=== PATIENT | female | born 1990 | race Caucasian/White ===

== ENCOUNTER 2016-09-24 20:43 | Emergency (ER) | payer OTHER ==
[2016-09-24] MEDS ORDERED: Hydromorphone 1 mg/ml Ampule IV ONE (21:16)
[2016-09-24] MEDS ORDERED: Phenergan 25 MG INJ IV ONE (21:16)
[2016-09-24] MEDS ORDERED: Sodium Chloride 0.9% 1000 ML 1,000 ML IV STA (21:16)
[2016-09-24] MEDS ORDERED: Phenergan 25 MG INJ ONE (21:29)
[2016-09-24] MEDS ORDERED: Sodium Chloride 0.9% 1000 ML 1,000 ML ONE (21:29)
[2016-09-24] MEDS ORDERED: Hydromorphone 1 mg/ml Ampule ONE (21:29)
[2016-09-24 21:36] LABS: BASOPHIL % 0.1 % (0.0-0.4); Eosinophil % 0.6 % (0.00-5.0); Granulocytes % 67.7 % (36.0-66.0); Lymphocytes % 23.5 % (24.0-44.0); Mean Cell Volume 87.5 fl (78-100); Mean Corpuscular Hemoglobin 29.4 pg (26-32); Mean Platelet Volume 10.7 fl (6-9.5); Monocytes % 8.1 % (0.0-12.0); Platelet Count 245 K/mm3 (150-450); Red Blood Count 5.11 M/mm3 (4.1-5.4); Red Cell Distribution Width 13.2 % (11.5-14.0); White Blood Count 8.7 K/mm3 (4.0-10.5)
[2016-09-24 21:53] LABS: ALBUMIN 3.9 g/dL (3.4-5.0); ALKALINE PHOSPHATASE 106 U/L (46-116); ANION GAP 13.1 MEQ/L (5-15); BILIRUBIN,TOTAL 0.5 mg/dL (0.2-1.0); BLOOD UREA NITROGEN 12 mg/dL (9-20); CHLORIDE 107 mEq/L (98-107); Carbon Dioxide 24.8 mEq/L (21-32); Glucose 96 MG/DL (70-110); LIPASE 260 U/L (73-393); MAGNESIUM 1.9 mg/dL (1.8-2.4); Potassium 3.5 mEq/L (3.5-5.1); SGOT/AST 16 U/L (15-37); SGPT/ALT 23 U/L (12-78); SODIUM 141 mEq/L (136-145); Total Protein 7.8 gm/dL (6.4-8.2)
--- NOTE | 2016-09-24 21:55 | ERPHSYRPT ---
- History of Present Illness Time Seen by Provider: 09/24/16 20:55 Historian: patient, other (N.N.) Exam Limitations: no limitations Patient Subjective Stated Complaint: Pt sts burping with sulfur taste and diarrhea x 1, sts going on for 2 hours. Sts pain all over abd 6/10. Sts hx of ulcers since age 14. Sts decreased appetite x 1 week. Triage Nursing Assessment: Pt alert, oriented, answers all questions appropriately. Skin p/w/d, resps non-labored. Ambulatory to tx room steady gait noted. Physician History: FOR THE PAST WEEK PT HAS HAD DECREASED APPETITE; FOR THE PAST 2 HOURS ERUCTATION , EPIGASTRIC DISCOMFORT, NAUSEA, LOWER ABDOMINAL CRAMPS AND DIARRHEA X1. PT STATES SHE HAD A TURKEY SANDWICH WITH MIRACLE WHIP FROM HER GRANDMOTHER TODAY PRIOR TO ONSET OF ABDOMINAL CRAMPS. Allergies/Adverse Reactions: coconut Allergy (Verified 09/24/16 21:24) Immunizations Up to Date: Yes - Review of Systems Abdominal/Gastrointestinal: Abdominal Pain, Nausea, Diarrhea, Appetite Changes ( DECREASED) All Other Systems: Reviewed and Negative - Past Medical History Pertinent Past Medical History: Yes GI Medical History: Ulcer Psycho-Social History: Depression - Past Surgical History Past Surgical History: No - Social History Smoking Status: Never smoker Exposure to second hand smoke: No Drug Use: none Patient Lives Alone: No - Female History Hx Last Menstrual Period: IUD - Nursing Vital Signs Nursing Vital Signs: Initial Vital Signs Temperature 98.3 F Temperature Source Oral Pulse Rate 70 Respiratory Rate 16 Blood Pressure [Right Arm] 106/67 Pain Intensity 7 - Physical Exam General Appearance: alert Eye Exam: PERRL/EOMI Ears, Nose, Throat Exam: TMs normal, pharynx normal, moist mucous membranes Neck Exam: normal inspection Respiratory Exam: lungs clear Cardiovascular Exam: normal heart sounds Gastrointestinal/Abdomen Exam: soft, tenderness (MILD DIFFUSE ABDOMINAL TENDERNESS), other (B.S. VERY HYPERACTIVE AND NORMOTONIC), No guarding Back Exam: normal range of motion Extremity Exam: normal inspection, No pedal edema Neurologic Exam: alert, cooperative Skin Exam: warm, dry SpO2 Interpretation: normal SpO2: 97 Oxygen Delivery: Room Air - Course Nursing assessment & vital signs reviewed: Yes Ordered Tests: Active Orders 24 hr Category Date Time Status Clean Catch Urine Specimen STAT Care 09/25/16 00:02 Active IV Insertion STAT Care 09/24/16 21:16 Active AMYLASE Stat Lab 09/24/16 21:30 Completed CBC W DIFF Stat Lab 09/24/16 21:30 Completed CMP Stat Lab 09/24/16 21:30 Completed HCG QUALITATIVE,SERUM Stat Lab 09/24/16 21:30 Completed LIPASE Stat Lab 09/24/16 21:30 Completed MAGNESIUM Stat Lab 09/24/16 21:30 Completed UA W/ MICROSCOPIC Stat Lab 09/24/16 23:50 Completed Medication Summary Generic Name Dose Route Start Last Admin Trade Name Freq PRN Reason Stop Dose Admin Potassium Chloride/Sodium Chloride 1,000 mls @ 100 mls/hr 09/24/16 23:45 00:06 Sodium Chloride 0.45% W/ 20 Meq Kcl IV 10/24/16 23:44 100 mls/hr .Q10H SHANTA Administration Discontinued Medications Generic Name Dose Route Start Last Admin Trade Name Freq PRN Reason Stop Dose Admin Hydromorphone HCl 1 mg 09/24/16 21:16 09/24/16 21:40 Hydromorphone 1 Mg/Ml Ampule IV 09/24/16 21:17 Not Given STAT ONE Hydromorphone HCl Confirm 09/24/16 21:29 Hydromorphone 1 Mg/Ml Ampule Administered 09/24/16 21:30 Dose 1 mg .ROUTE .STK-MED ONE Sodium Chloride 1,000 mls @ 999 mls/hr 09/24/16 21:16 09/24/16 21:33 Sodium Chloride 0.9% 1000 Ml IV 09/24/16 22:16 999 mls/hr .Q1H1M STA Administration Sodium Chloride Confirm 09/24/16 21:29 Sodium Chloride 0.9% 1000 Ml Administered 09/24/16 21:30 Dose 1,000 mls @ ud .ROUTE .STK-MED ONE Potassium Chloride/Sodium Chloride Confirm 09/24/16 23:54 Sodium Chloride 0.9% W/ 20 Meq Kcl/Liter Administered 09/24/16 23:55 Dose 1,000 mls @ ud IV .STK-MED ONE Promethazine HCl 12.5 mg 09/24/16 21:16 09/24/16 21:33 Phenergan 25 Mg Inj IV 09/24/16 21:17 12.5 mg STAT ONE Administration Promethazine HCl Confirm 09/24/16 21:29 Phenergan 25 Mg Inj Administered 09/24/16 21:30 Dose 25 mg .ROUTE .STK-MED ONE Lab/Rad Data: Laboratory Result Diagrams 09/24/16 21:30 09/24/16 21:30 Laboratory Results 09/24/16 09/24/16 09/24/16 Range/Units 23:50 21:30 21:30 WBC (4.0-10.5) K/mm3 RBC (4.1-5.4) M/mm3 Hgb (12.0-16.0) gm/dl Hct (35-47) % MCV (78-100) fl MCH (26-32) pg MCHC (32-36) g/dl RDW (11.5-14.0) % Plt Count (150-450) K/mm3 MPV (6-9.5) fl Gran % (36.0-66.0) % Lymphocytes % (24.0-44.0) % Monocytes % (0.0-12.0) % Eosinophils % (0.00-5.0) % Basophils % (0.0-0.4) % Basophils # (0-0.4) Sodium 141 (136-145) mEq/L Potassium 3.5 (3.5-5.1) mEq/L Chloride 107 (98-107) mEq/L Carbon Dioxide 24.8 (21-32) mEq/L Anion Gap 13.1 (5-15) MEQ/L BUN 12 (9-20) mg/dL Creatinine 0.88 (0.55-1.30) mg/dl Estimated GFR > 60 ML/MIN Glucose 96 (70-110) MG/DL Calcium 9.1 (8.5-10.1) mg/dL Magnesium 1.9 (1.8-2.4) mg/dL Total Bilirubin 0.5 (0.2-1.0) mg/dL AST 16 (15-37) U/L ALT 23 (12-78) U/L Alkaline Phosphatase 106 (46-116) U/L Serum Total Protein 7.8 (6.4-8.2) gm/dL Albumin 3.9 (3.4-5.0) g/dL Amylase 70 (25-115) U/L Lipase 260 (73-393) U/L Serum , Qual NEGATIVE (Negative) Ur Collection Type CLEAN CATCH Urine Color YELLOW (YELLOW) Urine Appearance SLIGHTLY CLOUDY (CLEAR) Urine pH 5.5 (5-6) Ur Specific [place] 1.015 (1.005-1.025) Urine Protein TRACE (Negative) Urine Glucose (UA) NEGATIVE (NEGATIVE) mg/dL Urine Ketones NEGATIVE (NEGATIVE) Urine Nitrite NEGATIVE (NEGATIVE) Urine Bilirubin NEGATIVE (NEGATIVE) Urine Urobilinogen 0.2 (0-1) mg/dL Urine WBC (Auto) NEGATIVE (NEGATIVE) Urine RBC (Auto) MODERATE (0-5) Mark/ul Urine Microscopic RBC 5-10 (0-2) /HPF Urine Microscopic WBC 0-2 (0-5) /HPF Ur Epithelial Cells MODERATE (FEW) /HPF Urine Bacteria FEW (NEGATIVE) /HPF Specimen Received 09/24/16:2350 09/24/16 Range/Units 21:30 WBC 8.7 (4.0-10.5) K/mm3 RBC 5.11 (4.1-5.4) M/mm3 Hgb 15.0 (12.0-16.0) gm/dl Hct 44.7 (35-47) % MCV 87.5 (78-100) fl MCH 29.4 (26-32) pg MCHC 33.6 (32-36) g/dl RDW 13.2 (11.5-14.0) % Plt Count 245 (150-450) K/mm3 MPV 10.7 H (6-9.5) fl Gran % 67.7 H (36.0-66.0) % Lymphocytes % 23.5 L (24.0-44.0) % Monocytes % 8.1 (0.0-12.0) % Eosinophils % 0.6 (0.00-5.0) % Basophils % 0.1 (0.0-0.4) % Basophils # 0.01 (0-0.4) Sodium (136-145) mEq/L Potassium (3.5-5.1) mEq/L Chloride (98-107) mEq/L Carbon Dioxide (21-32) mEq/L Anion Gap (5-15) MEQ/L BUN (9-20) mg/dL Creatinine (0.55-1.30) mg/dl Estimated GFR ML/MIN Glucose (70-110) MG/DL Calcium (8.5-10.1) mg/dL Magnesium (1.8-2.4) mg/dL Total Bilirubin (0.2-1.0) mg/dL AST (15-37) U/L ALT (12-78) U/L Alkaline Phosphatase (46-116) U/L Serum Total Protein (6.4-8.2) gm/dL Albumin (3.4-5.0) g/dL Amylase (25-115) U/L Lipase (73-393) U/L Serum , Qual (Negative) Ur Collection Type Urine Color (YELLOW) Urine Appearance (CLEAR) Urine pH (5-6) Ur Specific [place] (1.005-1.025) Urine Protein (Negative) Urine Glucose (UA) (NEGATIVE) mg/dL Urine Ketones (NEGATIVE) Urine Nitrite (NEGATIVE) Urine Bilirubin (NEGATIVE) Urine Urobilinogen (0-1) mg/dL Urine WBC (Auto) (NEGATIVE) Urine RBC (Auto) (0-5) Mark/ul Urine Microscopic RBC (0-2) /HPF Urine Microscopic WBC (0-5) /HPF Ur Epithelial Cells (FEW) /HPF Urine Bacteria (NEGATIVE) /HPF Specimen Received - Departure Time of Disposition: 00:44 Departure Disposition: Home Clinical Impression: ABDOMINAL PAIN, DIARRHEA, DEPRESSION Condition: Fair Critical Care Time: No Instructions: Diarrhea and Traveler's Diarrhea -- Adult Additional Instructions: FOLLOW UP WITH PRIVATE DOCTOR TOMORROW. START CLEAR LIQUIDS FOR 24 HOURS THEN A SOFT BLAND DIET. NO MILK OR JUICE FOR 2 DAYS. Prescriptions: Ondansetron [Zofran Odt] 4 mg PO Q4H PRN PRN #14 tab.rapdis PRN Reason: Nausea/Vomiting
[2016-09-24] MEDS ORDERED: SODIUM CHLORIDE 0.45% W/ 20 mEq KCL 1,000 ML IV SCH (23:45)
[2016-09-24] MEDS ORDERED: Sodium Chloride 0.9% W/ 20 mEq KCl/LITER 0 ML IV ONE (23:54)
[2016-09-25] MEDS ORDERED: SODIUM CHLORIDE 0.45% W/ 20 mEq KCL 1,000 ML IV ONE (00:03)
[2016-09-25 00:05] LABS: Bacteria FEW /HPF (NEGATIVE); COMPLETE URINE MICROSCOPIC? YES; Collection Type CLEAN CATCH; Epithelial Cells MODERATE /HPF (FEW); Ph 5.5 (5-6); WBC 0-2 /HPF (0-5)
[2016-09-25] MEDS ORDERED: Zofran 4 MG/2 ML VIAL IV ONE (00:45)
[2016-09-25] MEDS ORDERED: Zofran 4 MG/2 ML VIAL ONE (00:47)
[2016-09-25 01:37] VITALS: BP 103/56; PULSE 79; O2SAT 100
== END 2016-09-25 01:35 | disposition home or self-care (01) ==
LOC: ED 20:43
DX: R10.9 Unspecified abdominal pain (principal); R19.7 Diarrhea, unspecified; F32.9 Major depressive disorder, single episode, unspecified
CPT/HCPCS: 36000; 36415; 80053; 81000; 82150; 83690; 83735; 84703; 85025; 96360; 96361; 96365; 96366; 96374; 96375; 99284; J1170; J2405; J2550